=== PATIENT | male | born 2000 | race African-American/Black ===

== ENCOUNTER 2021-12-15 20:38 | Emergency (ER) | payer MEDICAID ==
[~2021-12-15] VITALS: Ht 167.6 cm; Wt 65.8 kg
--- NOTE | 2021-12-15 21:30 | NUR ---
PATIENT BIBRA C/O BODY ACHES WITH NECK PAIN, AFTER WALKING ALL DAY BECAUSE HE IS HOMELESS. PT A/O X 4 RR EVEN AND UNLABORED NO SOB NOTED. PT CONNECTED TO MONITORS.
--- NOTE | 2021-12-15 22:00 | NUR ---
PATIENT C/O SI + WITH PLAN OF SELF HARM. WANTING [facility] ADMIT.
[2021-12-15 23:03] LABS: ALANINE AMINOTRANSFERASE 20 U/L (12-78); ALCOHOL, BLOOD < 3 mg/dL (0-0); ALKALINE PHOSPHATASE 117 U/L (46-116); ASPARTATE AMINOTRANSFERASE 17 U/L (15-37); BILIRUBIN,DIRECT 0.1 mg/dL (0.0-0.2); BILIRUBIN,TOTAL 0.3 mg/dL (0.2-1.0); CALCIUM, SERUM 9.6 mg/dL (8.5-10.1); CARBON DIOXIDE 27 mmol/L (21-32); CHLORIDE 97 mmol/L (98-107); CREATININE 0.9 mg/dL (0.6-1.3); GLUCOSE 79 mg/dL (74-106); POTASSIUM 3.9 mmol/L (3.5-5.1); SODIUM SERUM 132 mmol/L (136-145); TOTAL PROTEIN, SERUM 8.9 g/dL (6.4-8.2); UREA NITROGEN, BLOOD 9 mg/dL (7-18)
[2021-12-15 23:17] LABS: ACETAMINOPHEN < 2 ug/ml (10-30)
[2021-12-15 23:35] LABS: BASOPHILS # (AUTO) 0.1 K/uL (0.0-0.2); BASOPHILS % (AUTO) 0.4 % (0.0-2.0); EOSINOPHILS % (AUTO) 2.9 % (0.0-6.0); HEMATOCRIT 44 % (39-51); HEMOGLOBIN 14.4 g/dL (13.5-17.5); LYMPHOCYTES # (AUTO) 2.2 K/uL (0.8-4.8); LYMPHOCYTES % (AUTO) 17.1 % (20.0-44.0); MEAN CORPUSCULAR HGB CONC 33 g/dl (31.0-36.0); MEAN CORPUSCULAR VOLUME 87 fL (80-96); MONOCYTES # (AUTO) 0.7 K/uL (0.1-1.30); MONOCYTES % (AUTO) 5.6 % (2.0-12.0); NEUTROPHILS # (AUTO) 9.7 K/uL (1.8-8.9); PLATELET COUNT (AUTO) 394 K/uL (150-450); RED BLOOD CELL COUNT(AUTO) 5.01 MIL/uL (4.5-6.0)
--- NOTE | 2021-12-15 23:42 | NUR ---
COVID SWAB AND URINE SAMPLE COLLECTED, SENT TO LAB
[2021-12-16 01:10] LABS: BILIRUBIN,URINE NEGATIVE (NEGATIVE); COLOR,URINE YELLOW (YELLOW); LEUKOCYTE ESTERASE ,URINE NEGATIVE (NEGATIVE); NITRITE, URINE NEGATIVE (NEGATIVE); PROTEIN,URINE NEGATIVE (NEGATIVE); UGLUCOSE NEGATIVE (NEGATIVE); UROBILINOGEN,URINE 0.2 EU/dL (0.2)
[2021-12-16 01:47] LABS: BACTERIA,URINE None seen /HPF (None Seen); CALCIUM OXALATE CRYSTALS,UR Many /HPF (None Seen); RBC,URINE 0-2 /HPF (0-2); SQUAMOUS EPITHELIAL CELL,UR Few /HPF (None Seen); WBC,URINE 0-2 /HPF (0-3)
--- NOTE | 2021-12-16 06:11 | NUR ---
faxed clinicals and face sheet to [facility]
--- NOTE | 2021-12-16 08:09 | NUR ---
Breakfast Served - Ate % 100. Updated with plan of care. Await response from [facility]. NA cooperative/Compliant
--- NOTE | 2021-12-16 09:29 | NUR ---
CALLED [facility] INTAKE WILL RE FAX FACE SHEET TO
--- NOTE | 2021-12-16 11:59 | NUR ---
PT ACCEPTED TO [facility] UND[facility] ELIZABETH PLEASE CALL [phone] FOR REPORT. [employer] SAL[employer] WILL BE AT 1230 WITH [employer] AND [employer] CHIEF INSPECTOR.
--- NOTE | 2021-12-16 12:48 | NUR ---
Pt Escorted to [facility] by their customer service driver Donte NO obvious distress- directable. Compliant and Cooperative
[2021-12-16 12:50] VITALS: BP 114/51
--- NOTE | 2021-12-16 13:14 | NUR ---
REPORT GIVEN TO NURSE MCARTHUR FROM [facility]
== END 2021-12-16 12:50 ==
LOC: ER 20:43
DX: R45.851 Suicidal ideations (principal); Z59.00 Homelessness unspecified; M54.50 Low back pain, unspecified; R20.0 Anesthesia of skin; Z20.822 Contact with and (suspected) exposure to COVID-19; F15.90 Other stimulant use, unspecified, uncomplicated; F12.90 Cannabis use, unspecified, uncomplicated
CPT/HCPCS: 36415; 72100; 80048; 80076; 80143; 80307; 80320; 81001; 85025; 87426; 99285; C9803; G0480